=== PATIENT | male | born 1960 | race Caucasian/White ===

== ENCOUNTER → 2019-04-28 | Day surgery (SDC) | payer OTHER ==
[2019-03-31 11:35] VITALS: BMI 30.4
[~2019-04-28] MED LIST: LACTATED RINGERS 1,000 ML IV SCH; LIDOCAINE 1% 20 ML VIAL (10MG/ML) FOR IV START INTRADERMA PRN; PROPOFOL 10 MG/ML 20 ML VIAL IV ONE
[2019-04-28 07:42] VITALS: TEMP 98.3
--- NOTE | 2019-04-28 08:34 | P.PCN ---
Date of Procedure: 04/28/19 Procedure(s) Performed: BRIEF HISTORY: Patient is a 58-year-old pleasant white male, scheduled for an elective colonoscopy as a part of screening for colorectal neoplasia. PROCEDURE PERFORMED: Colonoscopy. PREOPERATIVE DIAGNOSIS: Screening for colon cancer. IV sedation per Anesthesia. PROCEDURE: After informed consent was obtained, the patient, was brought into the endoscopy unit. IV sedation was administered by Anesthesia under continuous monitoring. Digital rectal examination was normal. Initially the Olympus CF-160 flexible video colonoscope was then inserted in the rectum, gradually advanced into the cecum without any difficulty. Careful examination was performed as the scope was gradually being withdrawn. Ileocecal valve and the appendiceal orifice were visualized and appeared normal. Prep was excellent. Mucosa of the cecum, ascending colon, transverse colon, descending colon, sigmoid colon, and rectum appeared normal. Retroflexion was performed in the rectum and no lesions were seen. The patient tolerated the procedure well. IMPRESSION: Normal-appearing colon from rectum to cecum no evidence of colitis or colorectal neoplasia . RECOMMENDATIONS: Findings of this examination were discussed with the patient as well as his family. He was advised to have a repeat screening colonoscopy in 10 years.
[2019-04-28 09:16] VITALS: BP 152/77; PULSE 70; RESP 16
== END ==
LOC: ORWHC2ENDO 07:20
PROVIDERS: ATTEND Internal Medicine Gastroenterology
DX: Z12.11 Encounter for screening for malignant neoplasm of colon (principal); E78.5 Hyperlipidemia, unspecified; E07.9 Disorder of thyroid, unspecified; K21.9 Gastro-esophageal reflux disease without esophagitis; Z79.890 Hormone replacement therapy; Z79.899 Other long term (current) drug therapy
CPT/HCPCS: G0121; J2704

== ENCOUNTER → 2019-10-12 | Outpatient (CLI) | payer OTHER ==
--- NOTE | 2019-10-12 15:33 | US ---
EXAMINATION TYPE: US carotid duplex BILAT DATE OF EXAM: 10/12/2019 COMPARISON: NONE CLINICAL HISTORY: H53.121 Transient visual loss, right eye. Visual changes right eye EXAM MEASUREMENTS: RIGHT: Peak Systolic Velocity (PSV) cm/sec ----- Right CCA: 86.4 ----- Right ICA: 270.3 ----- Right ECA: 105.6 ICA/CCA ratio: 3.1 RIGHT: End Diastole cm/sec ----- Right CCA: 18.2 ----- Right ICA: 102.2 ----- Right ECA: 16.3 LEFT: Peak Systolic Velocity (PSV) cm/sec ----- Left CCA: 123.7 ----- Left ICA: 174.6 ----- Left ECA: 182.5 ICA/CCA ratio: 1.4 LEFT: End Diastole cm/sec ----- Left CCA: 35.7 ----- Left ICA: 56.3 ----- Left ECA: 26.8 VERTEBRALS (direction of flow): Right Vertebral: Antegrade Left Vertebral: Antegrade Rhythm: Normal Moderate plaque bilateral bifurcations. Increased velocities right ICA, left ICA, left ECA IMPRESSION: 1. Stenosis of approximately 70% within the right internal carotid artery. 2. Although there are elevated velocities of the left external carotid artery and internal carotid ar azam there is also an elevated velocity of the common carotid artery and therefore the internal carot id artery to common carotid artery ratio is within normal limits. Criteria is not met for hemodynamic ally significant stenosis and underlying hypertension is suspected. CTA neck could provide better estephanie gnostic evaluation. Criteria for Assigning % of Stenosis / Diameter reduction (Estimation based on the indirect measurements of the internal carotid artery velocities (ICA PSV). 1. Normal (no stenosis)=ICA PSV < 125 cm/s: ratio < 2.0: ICA EDV<40 cm/s. 2. Less than 50% stenosis=ICA PSV < 125 cm/s: ratio < 2.0: ICA EDV<40 cm/s. 3. 50 to 69% stenosis=ICA PSV of 125 to 230 cm/s: ration 2.0 ? 4.0: ICA EDV 40-100 cm/s. 4. Greater than 70% stenosis to near occlusion= ICA PSV > 230 cm/s: ratio > 4.0: ICA EDV > 100 cm/s. 5. Near occlusion= ICA PSV velocities may be low or undetectable: variable ratio and ICA EDV. 6. Total occlusion=unable to detect flow.
== END | disposition home or self-care (01) ==
LOC: RADUSWWP 14:51
DX: I65.21 Occlusion and stenosis of right carotid artery (principal); H53.121 Transient visual loss, right eye
CPT/HCPCS: 93880

== ENCOUNTER → 2019-11-24 | Outpatient (CLI) | payer OTHER ==
[2019-11-24 12:53] LABS: Basophils % (A) 1 %; Eosinophils # (A) 0.1 k/uL (0-0.7); Eosinophils % (A) 2 %; HCT 46.6 % (39.0-53.0); HGB 15.3 gm/dL (13.0-17.5); Lymphocytes # (A) 1.7 k/uL (1.0-4.8); Lymphocytes % (A) 26 %; MCH 28.9 pg (25.0-35.0); MCHC 32.7 g/dL (31.0-37.0); MCV 88.2 fL (80.0-100.0); Mean Platelet Volume 6.7; Monocytes # (A) 0.4 k/uL (0-1.0); Monocytes % (A) 5 %; Neutrophils # (A) 4.1 k/uL (1.3-7.7); Neutrophils % (A) 62 %; Platelet Count 298 k/uL (150-450); RBC 5.29 m/uL (4.30-5.90); RDW 12.9 % (11.5-15.5); WBC 6.6 k/uL (3.8-10.6)
[2019-11-24 12:57] LABS: African American GFR (CKD) >90 (>60 ml/min/1.73 sqM); Anion Gap 7 mmol/L; Blood Urea Nitrogen 18 mg/dL (9-20); Carbon Dioxide 29 mmol/L (22-30); Chloride 103 mmol/L (98-107); Non-African American GFR(CKD) >90 (>60 ml/min/1.73 sqM); Potassium 4.7 mmol/L (3.5-5.1); Sodium 139 mmol/L (137-145)
== END | disposition home or self-care (01) ==
LOC: LABPAT 11:30
PROVIDERS: ATTEND Surgery
DX: Z01.812 Encounter for preprocedural laboratory examination (principal); I65.21 Occlusion and stenosis of right carotid artery
CPT/HCPCS: 36415; 80051; 82565; 84520; 85025

== ENCOUNTER 2019-11-28 07:46 | Inpatient (IN) | payer OTHER ==
[2019-11-23 08:18] VITALS: BMI 31.1
[~2019-11-28 07:46] MED LIST changes: +DEXAMETHASONE SOD PHOSPHATE 10 MG/ML 1 ML VIAL IV ONE; +HYDROmorphone 0.5 MG/0.5 ML SYRINGE IVP PRN; -LACTATED RINGERS 1,000 ML IV SCH; +ONDANSETRON 4 MG/2 ML VIAL IVP ONE; -PROPOFOL 10 MG/ML 20 ML VIAL IV ONE; +SCOPOLAMINE 1.5MG/72HR PATCH TRANSDERM ONE
[2019-11-28] MEDS: LACTATED RINGERS 1,000 ML IV SCH (08:01)
[2019-11-28] MEDS ORDERED: MIDAZOLAM 2 MG/2 ML VIAL IVP ONE (09:05)
[2019-11-28] MEDS ORDERED: MIDAZOLAM 2 MG/2 ML VIAL ONE (09:50)
[2019-11-28] MEDS ORDERED: NEOSTIGMINE 1 MG/ML 10 ML VIAL ONE (09:50)
[2019-11-28] MEDS ORDERED: ePHEDrine SULFATE/0.9% NACL/PF 50 MG/5 ML SYRINGE IV ONE (09:50)
[2019-11-28] MEDS ORDERED: PROPOFOL 10 MG/ML 20 ML VIAL IV ONE (09:50)
[2019-11-28] MEDS ORDERED: fentaNYL (PF) 50 MCG/ML 2 ML AMP ONE (09:50)
[2019-11-28] MEDS ORDERED: PHENYLEPHRINE-0.9% NACL SYG 1 MG/10 ML SYRINGE ONE (09:50)
[2019-11-28] MEDS ORDERED: LIDOCAINE 1% INJ 10MG/ML (20 ML MDV) ONE (09:50)
[2019-11-28] MEDS ORDERED: SUCCINYLCHOLINE CHLORIDE 100 MG/5 ML SYR IV ONE (09:50)
[2019-11-28] MEDS ORDERED: ROCURONIUM BROMIDE 10 MG/ML 5 ML VIAL IV ONE (09:50)
[2019-11-28] MEDS ORDERED: HEPARIN SODIUM,PORCINE 10,000 UNIT/ML 1 ML VIAL ONE (09:50)
[2019-11-28] MEDS ORDERED: GLYCOPYRROLATE 0.2 MG/ML 2 ML VIAL ONE (09:50)
[2019-11-28] MEDS ORDERED: LIDOCAINE 1% INJ 10MG/ML (20 ML MDV) IM ONE (10:47)
[2019-11-28] MEDS ORDERED: THROMBIN (BOVINE) 5,000 UNIT VIAL TOPICAL ONE (10:48)
[2019-11-28] MEDS ORDERED: GELATIN SPONGE,ABSORB (LARGE) 1 EACH SPONGE TOPICAL ONE (10:48)
[2019-11-28] MEDS ORDERED: BACITRACIN 50,000 UNIT, POLYMYXIN B 500,000 UNIT in SODIUM CHLORIDE 0.9% IRRIGATIO 1,00... IRRIGATION ONE (11:18)
[2019-11-28] MEDS ORDERED: LACTATED RINGERS 1,000 ML IV ONE (11:20)
[2019-11-28] MEDS ORDERED: TRIMETHOBENZAMIDE 100 MG/ML 2 ML VIAL IM PRN (11:46)
[2019-11-28] MEDS ORDERED: MAG HYDROX/AL HYDROX/SIMETH 30 ML CUP PO PRN (11:46)
[2019-11-28] MEDS ORDERED: LORATADINE 10 MG TAB PO PRN (11:50)
--- NOTE | 2019-11-28 12:12 | P.OP ---
Description of Procedure: Date of Procedure: 11/28/2019 Preoperative Diagnosis: Symptomatic Right Internal carotid artery stenosis >90% Postoperative Diagnosis: Same Procedure(s) Performed: Right carotid endarterectomy with patch angioplasty Anesthesia: MARIANNA Surgeon: Rodolfo Mariee Asst: Felicity Castillo Estimated Blood Loss (ml): 40 IV Fluids: 1100 mL Urine Output: 200 Pathology: Right carotid plaque Condition: stable Disposition: PACU Indications for Procedure: 59-year-old gentleman with history of amaurosis fugax on the right percent to the office for discussion of carotid endarterectomy after a carotid Doppler and CT angiogram of the neck demonstrated greater than 90% stenosis of the right internal carotid artery just after the bifurcation. He presents to the hospital today for right carotid endarterectomy. Description of Procedure: After written informed consent was obtained the patient all risks benefits and competitions were described the patient is brought to the operative suite and laid in a supine position. The area of the neck was prepped and draped in usual sterile fashion after appropriate anesthetic was performed per the anest hesiologist. A timeout was performed in normal fashion antibiotics were administered prior to incision. An oblique incision was then created just anterior to the sternocleidomastoid musculature with a 10 blade scalpel and dissection was carried down to the carotid sheath. The carotid sheath was then entered after facial vein was located and suture ligated in normal fashion. The common carotid, internal carotid, external carotid and superior thyroid arteries were located and dissected free in a meticulous fashion circumferentially and controlled with vessel loops. The internal carotid artery did have a sharp turn just distal to the bifurcation. Attention was then placed to locating the vagus nerve as well as hypoglossal nerve which were both spared. Once controlled patient was admini stered heparin and followed with ACTs for appropriate heparinization. Once ACT was above 200 the proximal and distal aspects of the dissection were then controlled with vascular clamps. Arteriotomy was then created with 11 blade scalpel and extended with Moreno Lopez scissors. Utilizing pressure tubing stump pressures were obtained and were 71 mmHg. No shunt was required and endarterectomy was then performed with a [place] and elevator. The plaque was then feathered at the distal aspect and the internal carotid artery and removed. The area was copiously irrigated with heparinized saline and all free debris was removed. A 7-0 Prolene suture was then placed to tack the distal aspect of the dissection at the internal carotid artery. A 0.8 x 8 cm bovine pericardial patch was then chosen and patch angioplasty was performed with 6-0 Prolene suture in a running fashion. Prior to last sutures being placed the inflow was released flushing any free debris out of the patch. This was reclamped and the internal carotid artery was released revealing good brisk flow and was once again reclamped. The external carotid and superior thyroid artery were then released followed by the common carotid artery to allow any free debris to be flushed into the external system. Final sutures were placed and secured. Internal carotid artery control was then released. Good pulsatile flow was noted through the patch and a Doppler was utilized demonstrating good brisk flow into the internal, external carotid arteries without any signs of obstruction. Hemostasis was then assured with [place]elf[place] and thrombin. A 10-Vietnamese DAVID drain was then placed in normal fashion and secured with 3-0 nylon suture. The incision was then closed in a multilayer fashion after hemostasis was assured. The skin was then cleansed and dressings were placed. Patient tolerated the procedure well and was following commands and moving all extremities. Patient was then sent to PACU for recovery.
[2019-11-28] MEDS: SODIUM CHLORIDE 0.9% 1,000 ML IV SCH (14:08)
--- NOTE | 2019-11-28 14:47 | P.CNPUL ---
History of Present Illness Consult date: 11/28/19 Requesting physician: Rodolfo Mariee Reason for consult: other (ICU management) Chief complaint: Status post right carotid endarterectomy History of present illness: This is a 59-year-old white male with history of right carotid artery disease, greater than 90%. and symptoms of AMAUROSIS FUGAX. Patient is also known to have history of dyslipidemia, family history of coronary artery disease, and lifetime nonsmoker. Patient underwent elective right carotid endarterectomy today. Postoperatively, patient was admitted to the ICU, and I was asked to see him on consultation. Patient had recent cardiac workup including stress test, and he was cleared by cardiology for his surgery which was done electively today. Presently the patient is asymptomatic, denies any shortness of breath, denies any cough, no wheezing. Patient never smoked Review of Systems Constitutional: Negative, denies fever chills or weight loss. Denies any confusional symptoms HEENT: Negative except for what was noted in HPI. Pulmonary: No cough no wheezing no shortness of breath. Cardiac: Denies any chest pain or orthopnea PND. GI: Denies any nausea vomiting abdominal pain melena or hematemesis. Genitourinary: Denies any dysuria hematuria frequency urgency. Skin negative denies any rashes. Hematologic: No clotting bleeding or bruising Neurologic: As noted in HPI. Endocrine: Denies any heat or cold intolerance. Musculoskeletal: Denies any muscle weakness or limitation in range of motion. Psychiatric: Denies any symptoms of active depression. Past Medical History Past Medical History: GERD/Reflux, Hyperlipidemia, Hypertension, Thyroid Disorder Additional Past Medical History / Comment(s): "atypical migraines", "occ skipped heart beat", "borderline high cholesterol", rt carotid artery stenosis, "possible sleep apnea-I wake up snoring" History of Any Multi-Drug Resistant Organisms: None Reported Past Surgical History: No Surgical Hx Reported Additional Past Surgical History / Comment(s): colonoscopy Past Anesthesia/Blood Transfusion Reactions: Motion Sickness Additional Past Anesthesia/Blood Transfusion Reaction / Comment(s): has never had general anesthesia Smoking Status: Never smoker - Past Family History Mother Family Medical History: Pulmonary Embolus Additional Family Medical History / Comment(s): bleeding ulcer Medications and Allergies Home Medications Medication Instructions Recorded Confirmed Type Cetirizine HCl 10 mg PO DAILY PRN 03/31/19 11/23/19 History Levothyroxine Sodium [Synthroid] 200 mcg PO DAILY 03/31/19 11/23/19 History Aspirin [Adult Low Dose Aspirin EC] 81 mg PO DAILY 11/23/19 11/23/19 History Atorvastatin [Lipitor] 40 mg PO HS 11/23/19 11/23/19 History Metoprolol Tartrate [Lopressor] 12.5 mg PO QAM 11/23/19 11/23/19 History amLODIPine [Norvasc] 2.5 mg PO HS 11/23/19 11/23/19 History Allergies Allergy/AdvReac Type Severity Reaction Status Date / Time No Known Allergies Allergy Verified 11/28/19 08:10 Physical Exam Vitals: Vital Signs Temp Pulse Pulse Resp BP BP BP 11/28/19 14:10 58 L 14 106/63 11/28/19 14:00 58 L 13 11/28/19 13:50 60 17 114/70 11/28/19 13:40 59 L 12 11/28/19 13:30 61 17 11/28/19 13:20 61 8 L 11/28/19 13:15 68 10 L 11/28/19 13:00 62 16 145/73 117/62 11/28/19 12:45 66 16 130/68 102/54 11/28/19 12:30 72 16 125/66 103/54 11/28/19 12:15 97 F L 77 16 133/66 107/51 11/28/19 09:16 68 16 123/78 11/28/19 08:14 97.1 F L 70 16 147/72 Pulse Ox 11/28/19 14:10 94 L 11/28/19 14:00 94 L 11/28/19 13:50 95 11/28/19 13:40 94 L 11/28/19 13:30 93 L 11/28/19 13:20 11/28/19 13:15 11/28/19 13:00 16 L 11/28/19 12:45 94 L 11/28/19 12:30 94 L 11/28/19 12:15 95 11/28/19 09:16 97 11/28/19 08:14 97 Intake and Output 11/27/19 11/28/19 11/28/19 22:59 06:59 14:59 Intake Total 1631 Output Total 340 Balance 1291 Intake: IV 1631 Sodium Chloride 0.9% 1, 80 000 ml @ 80 mls/hr IV . [id number] [facility] Rx#:[id number] Output: Urine 300 Estimated Blood Loss 40 Other: Weight 112.1 kg ABP, PAP, CO, CI - Last 8 Hours Arterial Blood Pressure 107/53 Arterial Blood Pressure 102/53 Arterial Blood Pressure 100/53 Arterial Blood Pressure 91/50 Arterial Blood Pressure 102/51 Arterial Blood Pressure 110/53 Physical Exam: Revealed a 59-year-old white male in no distress. Head: Atraumatic, normocephalic. HEENT:[Neck is supple.] [No neck masses.] [No thyromegaly.] [No JVD.] Surgical dressing noted at the base of the right neck, with drain noted. Chest: [Clear throughout, no crackles, no rhonchi, no wheezes.] Cardiac Exam: [Normal S1 and S2, no S3 gallop, no murmur.] Abdomen: [Soft, nontender, no megaly, no rebound, no guarding, normal bowel sounds.] Extremities: [No clubbing, no edema, no cyanosis.] Neurologic: Alert and oriented 3, no gross focal neurologic deficits. Psychiatric: Normal mood, affect and normal mental status examination. Skin: No rashes. Musculoskeletal: No deformities noted limitation in range of motion. Results - Diagnostic Findings Additional studies: Neck CT angiogram should recently showed critical stenosis of the right internal carotid artery, no significant stenosis of the left internal carotid artery. Assessment and Plan Assessment: Impression: Status post right carotid endarterectomy postoperative day #0. History of dyslipidemia maintained on statin Family history of coronary artery disease Recommendation: Resume home meds including blood pressure medication Aspirin and Plavix as ordered by vascular surgery. DVT prophylaxis/Lovenox. Pain control Incentive spirometry Continue IV fluid at 75 mL per hour. Possible discharge planning in the next 24 hours. Time with Patient: Greater than 30
[2019-11-28] MEDS: ACETAMINOPHEN TAB 325 MG TAB PO PRN ×2 (15:26→19:35)
[2019-11-28] MEDS ORDERED: SODIUM CHLORIDE 0.9% 1,000 ML IV ONE (16:50)
[2019-11-28] MEDS ORDERED: amLODIPine 2.5 MG TAB PO SCH (21:00)
[2019-11-28] MEDS ORDERED: ATORVASTATIN 40 MG TAB PO SCH (21:00)
[2019-11-29] MEDS: ACETAMINOPHEN TAB 325 MG TAB PO PRN ×2 (00:17→03:28)
[2019-11-29] MEDS: BENZOCAINE/MENTHOL LOZENG 1 EACH LOZENGE MUCOUS MEM PRN ×2 (00:17→03:29)
[2019-11-29] MEDS: SODIUM CHLORIDE 0.9% 1,000 ML IV SCH ×2 (00:20→08:47)
[2019-11-29 04:46] LABS: Basophils % (A) 0 %; Eosinophils % (A) 0 %; HCT 37.1 % (39.0-53.0); HGB 12.5 gm/dL (13.0-17.5); Lymphocytes # (A) 1.6 k/uL (1.0-4.8); Lymphocytes % (A) 16 %; MCH 29.7 pg (25.0-35.0); MCHC 33.8 g/dL (31.0-37.0); Mean Platelet Volume 6.9; Monocytes # (A) 0.5 k/uL (0-1.0); Monocytes % (A) 6 %; Neutrophils # (A) 7.6 k/uL (1.3-7.7); Neutrophils % (A) 77 %; Platelet Count 209 k/uL (150-450); RBC 4.22 m/uL (4.30-5.90); WBC 9.9 k/uL (3.8-10.6)
[2019-11-29 04:54] LABS: ALT 32 U/L (4-49); AST 33 U/L (17-59); African American GFR (CKD) >90 (>60 ml/min/1.73 sqM); Alkaline Phosphatase 63 U/L (38-126); Anion Gap 4 mmol/L; Blood Urea Nitrogen 11 mg/dL (9-20); Calcium 8.4 mg/dL (8.4-10.2); Carbon Dioxide 25 mmol/L (22-30); Chloride 107 mmol/L (98-107); Glucose 109 mg/dL (74-99); Non-African American GFR(CKD) >90 (>60 ml/min/1.73 sqM); Potassium 4.2 mmol/L (3.5-5.1); Sodium 136 mmol/L (137-145); Total Bilirubin 1.5 mg/dL (0.2-1.3); Total Protein 5.6 g/dL (6.3-8.2)
[2019-11-29] MEDS: LACTATED RINGERS 1,000 ML IV SCH (05:13)
[2019-11-29] MEDS ORDERED: LEVOTHYROXINE 100 MCG TAB PO SCH (06:30)
--- NOTE | 2019-11-29 07:42 | P.CRDCN ---
History of Present Illness Consult date: 11/29/19 Chief complaint: Carotid disease and status post endarterectomy History of present illness: This is a pleasant 59-year-old gentleman who sees Dr. Ponce in the office on regular basis with a past medical history significant for hypertension and d yslipidemia and also significant family history of coronary artery disease was diagnosed recently was critical disease involving the right internal carotid artery. He underwent yesterday right carotid endarterectomy. This is his post operation day #1. Overall the patient is doing well from a cardiac vascular standpoint overview. He denies any symptoms of chest pain or chest discomfort, shortness of breath, dizziness, heart racing, or syncope. He is hemodynamically stable. Beside that he is on dual antiplatelet therapy along with aspirin and Plavix as well as a statin. From a cardiac O standpoint of view, the patient can be discharged to another floor for possible discharge home next 12-24 hours. Past Medical History Past Medical History: GERD/Reflux, Hyperlipidemia, Hypertension, Thyroid Disorder Additional Past Medical History / Comment(s): "atypical migraines", "occ skipped heart beat", "borderline high cholesterol", rt carotid artery stenosis, "possible sleep apnea-I wake up snoring" History of Any Multi-Drug Resistant Organisms: None Reported Past Surgical History: No Surgical Hx Reported Additional Past Surgical History / Comment(s): colonoscopy Past Anesthesia/Blood Transfusion Reactions: Motion Sickness Additional Past Anesthesia/Blood Transfusion Reaction / Comment(s): has never had general anesthesia Smoking Status: Never smoker - Past Family History Mother Family Medical History: Pulmonary Embolus Additional Family Medical History / Comment(s): bleeding ulcer Medications and Allergies Home Medications Medication Instructions Recorded Confirmed Type Cetirizine HCl 10 mg PO DAILY PRN 03/31/19 11/23/19 History Levothyroxine Sodium [Synthroid] 200 mcg PO DAILY 03/31/19 11/23/19 History Aspirin [Adult Low Dose Aspirin EC] 81 mg PO DAILY 11/23/19 11/23/19 History Atorvastatin [Lipitor] 40 mg PO HS 11/23/19 11/23/19 History Metoprolol Tartrate [Lopressor] 12.5 mg PO QAM 11/23/19 11/23/19 History amLODIPine [Norvasc] 2.5 mg PO HS 11/23/19 11/23/19 History Allergies Allergy/AdvReac Type Severity Reaction Status Date / Time No Known Allergies Allergy Verified 11/28/19 08:10 Physical Exam Vitals: Vital Signs Temp Pulse Pulse Resp BP BP BP 11/29/19 07:00 49 L 11 L 104/67 11/29/19 06:00 55 L 18 11/29/19 05:00 58 L 17 107/62 11/29/19 04:00 98.7 F 57 L 17 110/61 11/29/19 03:00 54 L 15 104/59 11/29/19 02:00 54 L 17 112/63 11/29/19 01:00 53 L 18 122/76 11/29/19 00:00 98.6 F 56 L 15 113/62 11/28/19 23:06 56 L 11 L 113/62 11/28/19 23:00 57 L 18 105/59 11/28/19 22:00 53 L 17 108/64 11/28/19 21:00 52 L 12 114/68 11/28/19 20:00 55 L 19 105/64 11/28/19 19:00 61 18 105/64 11/28/19 18:00 55 L 16 102/59 11/28/19 17:00 54 L 18 102/59 11/28/19 16:00 97.4 F L 55 L 22 106/63 11/28/19 15:00 61 12 106/63 11/28/19 14:30 59 L 19 11/28/19 14:10 58 L 14 106/63 11/28/19 14:00 58 L 13 11/28/19 13:50 60 17 114/70 11/28/19 13:40 59 L 12 11/28/19 13:30 61 17 11/28/19 13:20 61 8 L 11/28/19 13:15 68 10 L 11/28/19 13:00 62 16 145/73 117/62 11/28/19 12:45 66 16 130/68 102/54 11/28/19 12:30 72 16 125/66 103/54 11/28/19 12:15 97 F L 77 16 133/66 107/51 11/28/19 09:16 68 16 123/78 11/28/19 08:14 97.1 F L 70 16 147/72 Pulse Ox 11/29/19 07:00 98 11/29/19 06:00 11/29/19 05:00 11/29/19 04:00 94 L 11/29/19 03:00 11/29/19 02:00 11/29/19 01:00 11/29/19 00:00 11/28/19 23:06 11/28/19 23:00 95 11/28/19 22:00 99 11/28/19 21:00 96 11/28/19 20:00 97 11/28/19 19:00 98 11/28/19 18:00 97 11/28/19 17:00 97 11/28/19 16:00 97 11/28/19 15:00 95 11/28/19 14:30 94 L 11/28/19 14:10 94 L 11/28/19 14:00 94 L 11/28/19 13:50 95 11/28/19 13:40 94 L 11/28/19 13:30 93 L 11/28/19 13:20 11/28/19 13:15 11/28/19 13:00 16 L 11/28/19 12:45 94 L 11/28/19 12:30 94 L 11/28/19 12:15 95 11/28/19 09:16 97 11/28/19 08:14 97 Intake and Output 11/28/19 11/29/19 11/29/19 22:59 06:59 14:59 Intake Total 880 420 Output Total 1275 2100 0 Balance -395 -1680 0 Intake: IV 880 420 Sodium Chloride 0.9% 1, 880 420 000 ml @ 120 mls/hr IV . Q8H20M [facility] Rx#:[id number] Output: Urine 1275 2100 0 Other: Voiding Method Indwelling Catheter Indwelling Catheter # Voids 1 Weight 117.8 kg ABP, PAP, CO, CI - Last 8 Hours Arterial Blood Pressure 100/51 Arterial Blood Pressure 90/48 Arterial Blood Pressure 92/47 Arterial Blood Pressure 106/53 - Constitutional General appearance: no acute distress - Respiratory Respiratory: bilateral: CTA - Cardiovascular Rhythm: regular Heart sounds: normal: S1, S2 Results 11/29/19 04:25 11/29/19 04:25 Cardiac Enzymes 11/29/19 Range/Units 04:25 AST 33 (17-59) U/L CBC 11/29/19 Range/Units 04:25 WBC 9.9 (3.8-10.6) k/uL RBC 4.22 L (4.30-5.90) m/uL Hgb 12.5 L (13.0-17.5) gm/dL Hct 37.1 L (39.0-53.0) % Plt Count 209 (150-450) k/uL Comprehensive Metabolic Panel 11/29/19 Range/Units 04:25 Sodium 136 L (137-145) mmol/L Potassium 4.2 (3.5-5.1) mmol/L Chloride 107 (98-107) mmol/L Carbon Dioxide 25 (22-30) mmol/L BUN 11 (9-20) mg/dL Creatinine 0.69 (0.66-1.25) mg/dL Glucose 109 H (74-99) mg/dL Calcium 8.4 (8.4-10.2) mg/dL AST 33 (17-59) U/L ALT 32 (4-49) U/L Alkaline Phosphatase 63 (38-126) U/L Total Protein 5.6 L (6.3-8.2) g/dL Albumin 3.0 L (3.5-5.0) g/dL Current Medications Generic Name Dose Route Start Last Admin Trade Name Freq PRN Reason Stop Dose Admin Acetaminophen 650 mg 11/28/19 11:46 11/29/19 03:28 Tylenol Tab PO 650 mg Q4HR PRN Administration Pain Al Hydroxide/Mg Hydroxide 30 ml 11/28/19 11:46 Maalox PO Q6HR PRN Indigestion Aspirin 162 mg 11/29/19 09:00 Aspirin PO DAILY [facility] Atorvastatin Calcium 40 mg 11/28/19 21:00 11/28/19 19:37 Lipitor PO 40 mg HS [facility] Administration Benzocaine/Menthol 1 each 11/28/19 11:46 11/29/19 03:29 Cepacol Lozenge MUCOUS MEM 1 each Q2HR PRN Administration Sore Throat Clopidogrel Bisulfate 75 mg 11/29/19 09:00 Plavix PO DAILY [facility] Enoxaparin Sodium 40 mg 11/29/19 09:00 Lovenox SQ DAILY [facility] Lactated Ringer's 1,000 mls @ 20 mls/hr 11/28/19 05:26 11/29/19 05:13 Lactated Ringers IV Not Given .Q24H [facility] Sodium Chloride 1,000 mls @ 120 mls/hr 11/28/19 12:00 11/29/19 00:20 Saline 0.9% IV 120 mls/hr .Q8H20M [facility] Administration Levothyroxine Sodium 200 mcg 11/29/19 06:30 11/29/19 05:59 Synthroid PO 200 mcg DAILY@0630 [facility] Administration Lidocaine HCl 0.1 ml 11/28/19 05:26 .Xylocaine 1% Inj (10mg/Ml) For Iv Start INTRADERMA PER PROTOCOL PRN IV Start Loratadine 10 mg 11/28/19 11:50 Claritin PO DAILY PRN allergies Metoprolol Tartrate 12.5 mg 11/29/19 09:00 Lopressor PO QAM [facility] Trimethobenzamide HCl 200 mg 11/28/19 11:46 Tigan IM Q4HR PRN Nausea And Vomiting Intake and Output 11/28/19 11/29/19 11/29/19 22:59 06:59 14:59 Intake Total 880 420 Output Total 1275 2100 0 Balance -395 -1680 0 Intake: IV 880 420 Sodium Chloride 0.9% 1, 880 420 000 ml @ 120 mls/hr IV . Q8H20M [facility] Rx#:[id number] Output: Urine 1275 2100 0 Other: Voiding Method Indwelling Catheter Indwelling Catheter # Voids 1 Weight 117.8 kg 11/29/19 04:25 11/29/19 04:25 Assessment and Plan Assessment: Assessment #1 critical disease involving the right internal carotid artery and status post right endarterectomy Plan #1 the patient is asymptomatic from a cardiac standpoint #2 he remains hemodynamically stable #3 the patient can be transferred out of the ICU
[2019-11-29 08:51] VITALS: TEMP 97.5
[2019-11-29] MEDS ORDERED: ENOXAPARIN 40 MG/0.4 ML SYRINGE SQ SCH (09:00)
[2019-11-29] MEDS ORDERED: ASPIRIN 81 MG PO SCH (09:00)
[2019-11-29] MEDS ORDERED: CLOPIDOGREL 75 MG TAB PO SCH (09:00)
[2019-11-29] MEDS ORDERED: NON FORMULARY DRUG (Aspirin [Adult Low Dose Aspirin Ec] 81 MG) PO SCH (09:00)
[2019-11-29] MEDS ORDERED: METOPROLOL TARTRATE 12.5 MG TAB PO SCH (09:00)
--- NOTE | 2019-11-29 09:36 | P.CONS ---
History of Present Illness - Chief Complaint Medical management - History of Present Illness This is a very pleasant 59-year-old male with history of hypertension, dyslipidemia and hypothyroidism who was recently diagnosed with right carted artery disease. About a month ago patient had transitory loss of vision in his right eye. At time he was evaluated by his cargo station worker and went for carted ultrasound which showed 90% stenosis in the right carted artery. He was admitted yesterday for elective atherectomy. His postoperative day one is doing very well. He does not have any numbness or weakness in his extremities. He does not have any chest pain or shortness of breath. Blood work is stable with hemoglobin of 12.5, normal white blood cell count and platelets. Review of Systems Review of systems negative except mentioned in HPI Past Medical History Past Medical History: GERD/Reflux, Hyperlipidemia, Hypertension, Thyroid Disorder Additional Past Medical History / Comment(s): "atypical migraines", "occ skipped heart beat", "borderline high cholesterol", rt carotid artery stenosis, "possible sleep apnea-I wake up snoring" History of Any Multi-Drug Resistant Organisms: None Reported Past Surgical History: No Surgical Hx Reported Additional Past Surgical History / Comment(s): colonoscopy Past Anesthesia/Blood Transfusion Reactions: Motion Sickness Additional Past Anesthesia/Blood Transfusion Reaction / Comm: has never had general anesthesia Smoking Status: Never smoker - Past Family History Mother Family Medical History: Pulmonary Embolus Additional Family Medical History / Comment(s): bleeding ulcer Medications and Allergies Home Medications Medication Instructions Recorded Confirmed Type Cetirizine HCl 10 mg PO DAILY PRN 03/31/19 11/23/19 History Levothyroxine Sodium [Synthroid] 200 mcg PO DAILY 03/31/19 11/23/19 History Aspirin [Adult Low Dose Aspirin EC] 81 mg PO DAILY 11/23/19 11/23/19 History Atorvastatin [Lipitor] 40 mg PO HS 11/23/19 11/23/19 History Metoprolol Tartrate [Lopressor] 12.5 mg PO QAM 11/23/19 11/23/19 History amLODIPine [Norvasc] 2.5 mg PO HS 11/23/19 11/23/19 History Clopidogrel [Plavix] 75 mg PO DAILY #30 tab 11/29/19 Rx Allergies Allergy/AdvReac Type Severity Reaction Status Date / Time No Known Allergies Allergy Verified 11/28/19 08:10 Physical Exam Vitals: Vital Signs Temp Pulse Pulse Resp BP BP BP 11/29/19 08:00 97.5 F L 57 L 12 104/67 11/29/19 07:00 49 L 11 L 104/67 11/29/19 06:00 55 L 18 11/29/19 05:00 58 L 17 107/62 11/29/19 04:00 98.7 F 57 L 17 110/61 11/29/19 03:00 54 L 15 104/59 11/29/19 02:00 54 L 17 112/63 11/29/19 01:00 53 L 18 122/76 11/29/19 00:00 98.6 F 56 L 15 113/62 11/28/19 23:06 56 L 11 L 113/62 11/28/19 23:00 57 L 18 105/59 11/28/19 22:00 53 L 17 108/64 11/28/19 21:00 52 L 12 114/68 11/28/19 20:00 55 L 19 105/64 11/28/19 19:00 61 18 105/64 11/28/19 18:00 55 L 16 102/59 11/28/19 17:00 54 L 18 102/59 11/28/19 16:00 97.4 F L 55 L 22 106/63 11/28/19 15:00 61 12 106/63 11/28/19 14:30 59 L 19 11/28/19 14:10 58 L 14 106/63 11/28/19 14:00 58 L 13 11/28/19 13:50 60 17 114/70 11/28/19 13:40 59 L 12 11/28/19 13:30 61 17 11/28/19 13:20 61 8 L 11/28/19 13:15 68 10 L 11/28/19 13:00 62 16 145/73 117/62 11/28/19 12:45 66 16 130/68 102/54 11/28/19 12:30 72 16 125/66 103/54 11/28/19 12:15 97 F L 77 16 133/66 107/51 Pulse Ox 11/29/19 08:00 94 L 11/29/19 07:00 98 11/29/19 06:00 11/29/19 05:00 11/29/19 04:00 94 L 11/29/19 03:00 11/29/19 02:00 11/29/19 01:00 11/29/19 00:00 11/28/19 23:06 11/28/19 23:00 95 11/28/19 22:00 99 11/28/19 21:00 96 11/28/19 20:00 97 11/28/19 19:00 98 11/28/19 18:00 97 11/28/19 17:00 97 11/28/19 16:00 97 11/28/19 15:00 95 11/28/19 14:30 94 L 11/28/19 14:10 94 L 11/28/19 14:00 94 L 11/28/19 13:50 95 11/28/19 13:40 94 L 11/28/19 13:30 93 L 11/28/19 13:20 11/28/19 13:15 11/28/19 13:00 16 L 11/28/19 12:45 94 L 11/28/19 12:30 94 L 11/28/19 12:15 95 Intake and Output 11/28/19 11/29/19 11/29/19 22:59 06:59 14:59 Intake Total 880 420 Output Total 1275 2100 0 Balance -395 -1680 0 Intake: IV 880 420 Sodium Chloride 0.9% 1, 880 420 000 ml @ 120 mls/hr IV . Q8H20M [facility] Rx#:[id number] Output: Urine 1275 2100 0 Other: Voiding Method Indwelling Catheter Indwelling Catheter Urinal # Voids 1 Weight 117.8 kg ABP, PAP, CO, CI - Last 8 Hours Arterial Blood Pressure 100/51 Arterial Blood Pressure 90/48 Arterial Blood Pressure 92/47 Vital Signs: I have reviewed the vital signs. GENERAL: Well-nourished, Well-developed , no apparent distress, cooperative Eyes: PERRL, extraoculry movements intact, clear conjunctiva Head: : Atraumatic external nose and ears, oropharyngeal mucosa is moist without lesions or exudates Neck: Symmetric, trachea midline, No thyromegaly, no masses or neck vain pulsation, no neck rigidity CVS: +S1/S2, No murmurs or gallops. Peripheral pulses 2+ and equal in all extremities. RESP: Unlabored respiratory effort. Clear to auscultation bilaterally. Abdomen: Bowel sounds present in all 4 quadrants, Soft to palpation, Nontender/Nondistended, No hepatosplenomegaly, no hernias or masses, no CVA tnderness Musculoskeletal: Extremities w/o deformity, No cyanosis or clubbing, no joint swelling Skin: Warm, Dry. No rashes or lesions Neuro: wire charger II-XII grossly intact, motor strenght 5/5 i upper and lower extremities, no clonus, patellar DTRs 2+ and sympetrical Psych: Awake, Alert, & Oriented (AAO) x3 Appropriate mood and affect Results CBC & Chem 7: 11/29/19 04:25 11/29/19 04:25 Labs: Abnormal Lab Results - Last 24 Hours (Table) 11/29/19 11/29/19 Range/Units 04:25 04:25 RBC 4.22 L (4.30-5.90) m/uL Hgb 12.5 L (13.0-17.5) gm/dL Hct 37.1 L (39.0-53.0) % Sodium 136 L (137-145) mmol/L Glucose 109 H (74-99) mg/dL Total Bilirubin 1.5 H (0.2-1.3) mg/dL Total Protein 5.6 L (6.3-8.2) g/dL Albumin 3.0 L (3.5-5.0) g/dL Assessment and Plan Assessment: 1. Right Carted artery disease, symptomatic Status post CEA Postoperative day one Continue antiplatelets and statin Care per vascular surgery 2. Hypothyroidism Continue Synthroid 2. Hypertension continue his current home medications His blood pressures on the soft side but I would not anticipate that it will be normal significant changes in his blood pressure medications at time of discharge
--- NOTE | 2019-11-29 11:09 | P.PN ---
Subjective Progress Note Date: 11/29/19 Principal diagnosis: Status post right carotid endarterectomy postoperative day #1 This is a 59-year-old white male with history of right carotid artery disease, greater than 90%. and symptoms of AMAUROSIS FUGAX. Patient is also known to have history of dyslipidemia, family history of coronary artery disease, and lifetime nonsmoker. Patient underwent elective right carotid endarterectomy today. Postoperatively, patient was admitted to the ICU, and I was asked to see him on consultation. Patient had recent cardiac workup including stress test, and he was cleared by cardiology for his surgery which was done electively today. Presently the patient is asymptomatic, denies any shortness of breath, denies any cough, no wheezing. Patient never smoked Patient was reevaluated today on 11/29/2019, patient is doing well, he is postoperative day #1. Patient is asymptomatic, hemodynamically stable, denies any shortness of breath no cough no wheezing no headache no blurred vision no dizziness. Labs were reviewed including basic metabolic profile and CBC seem to be very unremarkable Objective - Vital Signs Vital signs: Vital Signs Temp 97.5 F L 11/29/19 08:00 Pulse 53 L 11/29/19 10:00 Resp 18 11/29/19 10:00 BP 110/76 11/29/19 10:00 Pulse Ox 96 11/29/19 10:00 Intake & Output 11/28/19 11/29/19 11/29/19 18:59 06:59 18:59 Intake Total 2151 780 Output Total 765 2950 20 Balance 1386 -2170 -20 Weight 112.1 kg 117.8 kg Intake: IV 2151 780 Sodium Chloride 0.9% 1, 600 780 000 ml @ 120 mls/hr IV . Q8H20M [facility] Rx#:[id number] Output: Drainage 20 Right Neck 20 Urine 725 2950 0 Estimated Blood Loss 40 Other: Voiding Method Indwelling Catheter Indwelling Catheter Urinal # Voids 1 ABP, PAP, CO, CI - Last Documented Arterial Blood Pressure 100/51 - Exam Physical Exam: Revealed a 59-year-old white male in no distress. Head: Atraumatic, normocephalic. HEENT:[Neck is supple.] [No neck masses.] [No thyromegaly.] [No JVD.] Surgical dressing noted, drain has been removed from the surgical site Chest: [Clear throughout, no crackles, no rhonchi, no wheezes.] Cardiac Exam: [Normal S1 and S2, no S3 gallop, no murmur.] Abdomen: [Soft, nontender, no megaly, no rebound, no guarding, normal bowel sounds.] Extremities: [No clubbing, no edema, no cyanosis.] Neurologic: Alert and oriented 3, no gross focal neurologic deficits. Psychiatric: Normal mood, affect and normal mental status examination. Skin: No rashes. Musculoskeletal: No deformities noted limitation in range of motion. - Labs CBC & Chem 7: 11/29/19 04:25 11/29/19 04:25 Labs: Abnormal Lab Results - Last 24 Hours (Table) 11/29/19 11/29/19 Range/Units 04:25 04:25 RBC 4.22 L (4.30-5.90) m/uL Hgb 12.5 L (13.0-17.5) gm/dL Hct 37.1 L (39.0-53.0) % Sodium 136 L (137-145) mmol/L Glucose 109 H (74-99) mg/dL Total Bilirubin 1.5 H (0.2-1.3) mg/dL Total Protein 5.6 L (6.3-8.2) g/dL Albumin 3.0 L (3.5-5.0) g/dL Assessment and Plan Assessment: Impression: Status post right carotid endarterectomy postoperative day #1 History of dyslipidemia maintained on statin Family history of coronary artery disease Recommendation: Resume home meds Continue incentive spirometer. Agree with discharge planning today, cleared from my perspective for discharge today. Time with Patient: Less than 30
--- NOTE | 2019-11-29 13:09 | P.DS ---
Providers Date of admission: 11/28/19 07:46 Expected date of discharge: 11/29/19 Attending physician: Rodolfo Mariee DO Consults: 11/28/19 11:46 Consult Physician Routine Consulting Provider: Dixie Moreno Consult Reason/Comments: medical management Do you want consulting provider notified?: Yes 11/28/19 11:51 Consult Physician Routine Consulting Provider: Patria Barros Consult Reason/Comments: icu care Do you want consulting provider notified?: Yes 11/28/19 11:52 Consult Physician Routine Consulting Provider: Peace Ponce Consult Reason/Comments: cad, patient known to you Do you want consulting provider notified?: Yes Primary care physician: [facility] Course: The patient is a pleasant 59-year-old male with a history of symptomatic right internal carotid artery stenosis greater than 90% who was following with Dr. Mariee in the outpatient setting. A carotid Doppler and CT angiogram of the neck demonstrated greater than 90% stenosis of the right internal carotid artery just after the bifurcation, therefore the patient came in for a planned carotid endarterectomy. He is postop day 1 today for a right carotid endarterectomy with patch angioplasty. He had some asymptomatic hypotension through the night, and his blood pressure medications were held. Patient denies any acute changes through the night, vital signs are stable. Dressing is clean dry and intact with DAVID drain with approximately 20 mL of serosanguineous drainage. Cardiology Dr. Ponce on consult to address hypotension and his recent start of new blood pressure medications. Assessment: Exam: General appearance: The patient is alert, oriented, in no acute distress. HET: Head is normocephalic and atraumatic. Neck: Supple without lymphadenopathy. Trachea midline. Residual neck with dressing clean dry and intact and DAVID drain with approximately 20 mL of serosanguineous drainage. Dressing removed incision is well approximated, with no drainage. No signs of hematoma and incision site. Heart: S1 S2. Regular rate and rhythm. Lungs: No crackles or wheezes are heard. Abdomen: Soft, nontender, nondistended with bowel sounds. Extremities: Normal skin color and turgor. Radial and pedal pulses are 2/4 bilaterally. Neurological: No focal deficits. Strength and sensation are grossly intact. Assessment: Symptomatic right internal carotid artery stenosis greater than 90% Plan: Patient is status post right carotid endarterectomy with patch angioplasty. Vital signs have remained stable. Continue to hold Lopressor. Dressing was removed as well as DAVID drain. A-line and bolanos catheter have been discontinued. Patient's been up ambulating and tolerating diet. Cardiology to see patient, adjust blood pressure medi cations. Patient may be discharged after lunch if okay with cardiology. The above dictated assessment and findings were discussed with Dr. Bolanos. The impression and plan of care have been directed as dictated. Procedures: Right carotid endarterectomy with patch angioplasty Patient Condition at Discharge: Good Plan - Discharge Summary New Discharge Prescriptions: New Clopidogrel [Plavix] 75 mg PO DAILY #30 tab Aspirin 162 mg PO DAILY chew Acetaminophen Tab [Tylenol] 650 mg PO Q4HR PRN tab PRN Reason: Pain Continue Cetirizine HCl 10 mg PO DAILY PRN PRN Reason: allergies Levothyroxine Sodium [Synthroid] 200 mcg PO DAILY Atorvastatin [Lipitor] 40 mg PO HS Aspirin [Adult Low Dose Aspirin EC] 81 mg PO DAILY Discontinued amLODIPine [Norvasc] 2.5 mg PO HS Metoprolol Tartrate [Lopressor] 12.5 mg PO QAM Discharge Medication List Cetirizine HCl 10 mg PO DAILY PRN 03/31/19 [History] Levothyroxine Sodium [Synthroid] 200 mcg PO DAILY 03/31/19 [History] Aspirin [Adult Low Dose Aspirin EC] 81 mg PO DAILY 11/23/19 [History] Atorvastatin [Lipitor] 40 mg PO HS 11/23/19 [History] Acetaminophen Tab [Tylenol] 650 mg PO Q4HR PRN tab 11/29/19 [Rx] Aspirin 162 mg PO DAILY chew 11/29/19 [Rx] Clopidogrel [Plavix] 75 mg PO DAILY #30 tab 11/29/19 [Rx] Follow up Appointment(s)/Referral(s): Rodolfo Mariee DO [STAFF PHYSICIAN] - 2 Weeks (Follow-up appointment with Dr. Mariee in 10-14 days) Activity/Diet/Wound Care/Special Instructions: May shower tomorrow. No tub bathing. No driving for 3 days. No heavy lifting or shoveling. Discharge Disposition: HOME SELF-CARE
[2019-11-29 14:25] VITALS: BP 99/58; PULSE 52; RESP 17
== END 2019-11-29 14:27 | disposition home or self-care (01) | DRG 39 ==
LOC: 2ORMAIN 07:46 → 2SICU 12:18
PROVIDERS: ADMIT Surgery; ATTEND Surgery
PROC: 03CK0ZZ Extirpation of Matter from Right Internal Carotid Artery, Open Approach (ICD-10-PCS; principal; 2019-11-28 09:15)
PROC: 03UK0KZ Supplement Right Internal Carotid Artery with Nonautologous Tissue Substitute, Open Approach (ICD-10-PCS; principal; 2019-11-28 09:15)
DX: I65.21 Occlusion and stenosis of right carotid artery (principal); I95.9 Hypotension, unspecified; E03.9 Hypothyroidism, unspecified; H54.61 Unqualified visual loss, right eye, normal vision left eye; E78.2 Mixed hyperlipidemia; I10 Essential (primary) hypertension; G43.009 Migraine without aura, not intractable, without status migrainosus; K21.9 Gastro-esophageal reflux disease without esophagitis; Z79.82 Long term (current) use of aspirin; Z79.890 Hormone replacement therapy; Z79.02 Long term (current) use of antithrombotics/antiplatelets; Z79.899 Other long term (current) drug therapy; Z82.49 Family history of ischemic heart disease and other diseases of the circulatory system; Z83.2 Family history of diseases of the blood and blood-forming organs and certain disorders involving the immune mechanism
CPT/HCPCS: 80053; 85025; 86850; 86900; 86901; 88304; 88305; 88311

== ENCOUNTER → 2024-10-05 | Outpatient (CLI) | payer OTHER ==
[2024-10-05 16:22] VITALS: BP 142/89; PULSE 70; RESP 16; TEMP 98.2
--- NOTE | 2024-10-05 16:57 | P.SLEEP ---
History of Present Illness DATE: 10/05/2024 CONSULTATION/NEW PATIENT EVALUATION HISTORY OF PRESENT ILLNESS/SLEEP-WAKE EVALUATION: 63-year-old gentleman had been evaluated in the sleep center for possible obstructive sleep apnea hypopnea syndrome. SLEEP SCHEDULE: Usually sleep schedule from midnight until 9 AM on weekdays and from 1:30 AM until 9 AM on weekend. FALLING ASLEEP: No problems with falling asleep. DURING SLEEP: Patient has snoring, dry mouth and awakenings from sleep with episodes of choking and gasping for air. No history of hypnogogical hallucinations, sleep paralysis, or cataplexy. DURING THE DAY/WAKE STATE: In the morning patient wake up tired, has episodes of anxiety. [place] sleepiness scale is increased to 11. Patient may take 1 nap during the day. PAST MEDICAL HISTORY: Hypertension, anxiety, hypothyroidism. PAST SURGICAL HISTORY: Right carotid endarterectomy. MEDICATIONS: Have been reviewed please see below. SOCIAL HISTORY: Please see below. FAMILY HISTORY: Please see below. REVIEW OF SYSTEMS: Snoring, awakenings with choking, sleepiness. No fevers. No double vision. No recent chest pain. No shortness of breath. No abdominal pain. No bleeding episodes. No blood in urine. No seizure episodes. PHYSICAL EXAMINATION: GENERAL: A pleasant patient without any distress. VITAL SIGNS: Please see below, weight 259 pounds, BMI 33.2. HEENT: PERRLA, EOMI. Evaluation of oropharynx showed tongue protrudes midline, low position of soft palate Mallampati 3. NECK: Supple. No JVD. Thyroid is not palpable. 17 inches in circumference. LUNGS: Clear to percussion and to auscultation. Good air exchange. No wheezing or rhonchi. HEART: S1, S2 regular. No murmurs, gallops or rubs. ABDOMEN: Soft and nontender. Bowel sounds are present. No organomegaly appreciated. EXTREMITIES: No clubbing or cyanosis. TRIPLE AIR VALVE TESTER: Awake, alert, and oriented x3. Cranial nerves 2 to 7 intact. There is no fasciculation or atrophy noted. No focal deficits observed. ASSESSMENT: 1. Snoring, awakenings from sleep with choking, low position of soft palate Mallampati 3, wide neck 17 inches in circumference, sleepiness with [place] Sleepiness Scale 11. Obstructive sleep apnea hypopnea syndrome. 2. Obesity, BMI 33.2. 3. Hypertension. 4. Anxiety. 5 hypothyroidism. 6 . Status post right carotid endarterectomy. 7. Sinus problems. PLAN: 1. Polysomnography for evaluation of patient's breathing during sleep. 2. Following plan after reading sleep study. 3. Preferable position during sleep on the side. 4. No driving if patient feels any sleepiness. Patient is aware of civil and criminal liability for unsafe driving. 5. Sleep hygiene with regular sleep time for at least 7.5-8 hours. 6. Watching and losing weight. Thank you very much for referring this patient for consultation. Sincerely, Rod Tomlin MD, PhD, FAASM. Diplomat of [place] [employer], Sleep Medicine Board by [place] [employer] [place] [employer] [facility] [facility] [place] cc: [facility] Past Medical History Past Medical History: GERD/Reflux, Hyperlipidemia, Hypertension, Sleep Apnea/CPAP/BIPAP, Thyroid Disorder Additional Past Medical History / Comment(s): "atypical migraines", "occ skipped heart beat", "borderline high cholesterol", rt carotid artery stenosis, "possible sleep apnea-I wake up snoring", restless legs History of Any Multi-Drug Resistant Organisms: None Reported Past Surgical History: No Surgical Hx Reported Additional Past Surgical History / Comment(s): colonoscopy Past Anesthesia/Blood Transfusion Reactions: Motion Sickness Additional Past Anesthesia/Blood Transfusion Reaction / Comment(s): has never had general anesthesia Past Psychological History: No Psychological Hx Reported Additional Psychological History / Comment(s): anxious over surgery Smoking Status: Never smoker Past Alcohol Use History: Occasional Past Drug Use History: None Reported - Past Family History Mother Family Medical History: Coronary Artery Disease (CAD), CVA/TIA, Diabetes Mellitus, Hypertension, Osteoarthritis (OA), Pulmonary Embolus Additional Family Medical History / Comment(s): bleeding ulcer Sister(s) Family Medical History: Asthma, Coronary Artery Disease (CAD), Hypertension, Thyroid Disorder Father Family Medical History: Coronary Artery Disease (CAD), Hyperlipidemia, Hypertension Medications and Allergies Home Medications Medication Instructions Recorded Confirmed Type Cetirizine HCl 10 mg PO DAILY PRN 03/31/19 10/05/24 History Levothyroxine Sodium [Synthroid] 200 mcg PO DAILY 03/31/19 10/05/24 History Aspirin [Adult Low Dose Aspirin EC] 81 mg PO DAILY 11/23/19 10/05/24 History Atorvastatin [Lipitor] 40 mg PO HS 11/23/19 10/05/24 History Acetaminophen Tab [Tylenol] 650 mg PO Q4HR PRN tab 11/29/19 Rx Aspirin 162 mg PO DAILY chew 11/29/19 Rx Clopidogrel [Plavix] 75 mg PO DAILY #30 tab 11/29/19 Rx Cholecalciferol [Vitamin D3 (25 25 mcg PO DAILY 10/05/24 10/05/24 History Mcg = 1000 Iu)] Escitalopram [Lexapro] 20 mg PO DAILY 10/05/24 10/05/24 History amLODIPine [Norvasc] 5 mg PO DAILY 10/05/24 10/05/24 History Allergies Allergy/AdvReac Type Severity Reaction Status Date / Time No Known Allergies Allergy Verified 11/28/19 08:10 Physical Exam Vitals: Vital Signs Temp Pulse Resp BP Pulse Ox 10/05/24 16:20 98.2 F 70 16 142/89 98 Intake and Output 10/05/24 10/05/24 10/05/24 06:59 14:59 22:59 Other: Weight 117.48 kg Sleep Note - Sleep Data ESS Total: 11 - Sleep Note Sleep Note: Temperature: 98.2 F Pulse Rate: 70 Respiratory Rate: 16 Blood Pressure: 142/89 SpO2: 98 Height: 6 ft 2 in Weight: 117.48 kg BMI: Neck Circumference: 17
== END ==
LOC: 3 N SLEEP 15:41
PROVIDERS: ATTEND Internal Medicine
DX: G47.33 Obstructive sleep apnea (adult) (pediatric) (principal); I10 Essential (primary) hypertension; E66.01 Morbid (severe) obesity due to excess calories; E03.9 Hypothyroidism, unspecified; L98.8 Other specified disorders of the skin and subcutaneous tissue; Z68.33 Body mass index [BMI] 33.0-33.9, adult; Z98.62 Peripheral vascular angioplasty status
CPT/HCPCS: 99202

== ENCOUNTER → 2024-11-06 | Outpatient (CLI) | payer OTHER ==
--- NOTE | 2024-11-07 08:59 | MR ---
EXAMINATION TYPE: MR brain wo con DATE OF EXAM: 11/06/2024 8:24 PM COMPARISON: None. CLINICAL INDICATION: Male, 64 years old with history of G43.009 Atypical migraine; PHH, Atypical migr librado TECHNIQUE: Multi planar, multi sequence imaging was performed through the brain including: T1, T2, In version recovery, Diffusion weighted imaging, and gradient echo imaging. No gadolinium was given. FINDINGS: The maza-white junctions, ventricular system, basal cisterns appear unremarkable. Minimal scattered foci of high T2 signal intensity are seen within the periventricular white matter. Midline structure s show no abnormality. Diffusion-weighted imaging shows no evidence of restricted diffusion. The susc eptibility weighted images do not reveal any evidence for micro-hemorrhage. Pulsation artifact on FLA IR imaging courses across the frontal lobes. The bone marrow signal is within normal limits. Paranasal sinuses and mastoid air cells: No significant paranasal sinus disease. Just T2 signal right mastoid air cells. Visualized orbits: Orbital contents are intact. IMPRESSION: 1. No evidence of intracranial mass or acute/subacute infarct. 2. Few nonspecific white matter changes, possibly sequela of migraines versus small vessel ischemic d isease. [facility], , 11/07/2024 8:57 AM
--- NOTE | 2024-11-07 09:06 | MR ---
EXAMINATION TYPE: MR angio head wo con DATE OF EXAM: 11/06/2024 8:10 PM COMPARISON: MRI brain same day. CLINICAL INDICATION: Male, 64 years old with history of G43.009 Atypical migraine; PHH, Atypical migr librado TECHNIQUE: 3-D [id number] Axial with MIP reconstruction created on a separate workstation.. IV Contrast: mL (None, if empty) FINDINGS: Vertebral arteries: The vertebral arteries are patent. Vertebral arteries are: Codominant. Basilar artery: The basilar artery is intact. The basilar artery bifurcation is normal. Internal Carotid arteries: The cervical, petrous, cavernous and supraclinoid segments are normal. TRESA: Patent with no evidence of aneurysm. ACOM: Present without evidence of aneurysm. MCA: Patent with no evidence of aneurysm. FILTER SCREEN CLEANER: Patent with no evidence of aneurysm. PCOM: Hypoplastic bilaterally. Right internal auditory artery territory canal vascular loop type II. IMPRESSION: 1. No evidence of aneurysm or significant stenosis. 2. Right internal auditory artery territory canal vascular loop type II. [facility], , 11/07/2024 9:04 AM
== END | disposition home or self-care (01) ==
LOC: RADMRIMAIN 19:17
PROVIDERS: ATTEND Psychiatry & Neurology Neurology
DX: G43.009 Migraine without aura, not intractable, without status migrainosus (principal); R90.82 White matter disease, unspecified; Q14.2 Congenital malformation of optic disc
CPT/HCPCS: 70544; 70551

== ENCOUNTER 2024-12-18 19:34 | Outpatient (CLI) | payer OTHER ==
--- NOTE | 2025-01-11 13:24 | P.PCN ---
Description of Procedure: POLYSOMNOGRAPHY REPORT PROCEDURE(S)/DATE(S): Polysomnography 12/18/2024 CLINICAL: Patient has been seen in the sleep center for evaluation of obstructive sleep apnea-hypopnea syndrome. Please see my consultation. Sleep study has been done for evaluation of patient breathing during the sleep. PROCEDURE: The standard montage for clinical polysomnography included the electroencephalogram, the electrooculogram, the mentalis surface electromyography and Lead II cardiography. The respiratory battery consisted of measurements of nasal/buccal air flow, pressure transducer measurements from nose, thoracic and/or abdominal effort and intercostal surface electromyography. Video monitoring has been done to check for any parasomnia events. Nocturnal oxyhemoglobin saturations were obtained by finger oximetry. Step-mayen titration with positive airway pressure was utilized to control the respiratory events, if necessary. RESULTS: During the diagnostic sleep study sleep efficiency was extremely short 43.4%. Latency to sleep onset was prolonged to 39.5 min. Sleep architecture s howed stage NI was extremely high 67.8%, Delta sleep was absent 0%, REM sleep was short 10.3%. Total sleep time 180.0 minutes. Respiratory channel showed,0 obstructive apneas, 0 mixed apneas, 0 central apneas, 8 hypopneas with lowest oxygen level 90%. Total apnea hypopnea index was 2.7. Heart rate was in the range between 53 and 61, average 57. EMG showed 107.3 periodic limb movements per hour with 0 micro-arousals per hour. IMPRESSIONS: 1. Short sleep efficiency, totally patient slept only 3 hours. No significant respiratory abnormalities have been documented with normal oxygenation, but sleep time was short. 2. Severe periodic limb movements have been documented, but without significant microarousals. Please see other impressions from consultation PLAN: 1. I will see patient for follow-up visit to discuss results of the test and following plan. 2. Losing weight program. 3. Sleep hygiene with regular time in bed for at least 7-1/2 hours. 4. No driving if feeling sleepiness. 5. Please check iron profile including ferritin level. Low level of iron may increase the risk for periodic limb movements. Will consider to start patient on medications to prevent periodic limb movements. Thank you very much for allowing me to participate in the management of your patient. Sincerely, Rod Tomlin MD, PhD, FAASM. Diplomat of [employer], Sleep Medicine Board by [employer] Worker of [facility] [place] cc: Jorge L Tobar DO
== END 2024-12-19 05:50 | disposition home or self-care (01) ==
LOC: 3 N SLEEP 19:34
PROVIDERS: ATTEND Internal Medicine
DX: G47.33 Obstructive sleep apnea (adult) (pediatric) (principal); G47.61 Periodic limb movement disorder
CPT/HCPCS: 95810

== ENCOUNTER → 2025-01-25 | Outpatient (CLI) | payer OTHER ==
[2025-01-25 11:00] VITALS: BP 115/73; PULSE 76; RESP 16; TEMP 98.2
--- NOTE | 2025-01-25 11:43 | P.PROGSL ---
Subjective DATE: 01/25/2025 FOLLOW UP VISIT. Patient returned to sleep center for follow-up visit to discuss results of polysomnogram and following plan. I discussed results of sleep study with patient in details. Sleep slept 3 hours. Apnea hypopnea index was 2.7 with oxygen level above 90%, which is normal. EMG showed 107.3 periodic limb movements per hour. Patient has discomfort in his legs while falling asleep and sometimes during the night. . [place] sleepiness scale is increased to 12. MEDICATIONS: Please see below During physical exam: GENERAL: A pleasant patient without any distress. VITAL SIGNS: Please see below. HEENT: [place], EOMI. NECK: Supple. No JVD. LUNGS: Clear to percussion and to auscultation. Good air exchange. No wheezing or rhonchi. HEART: S1, S2 regular. ABDOMEN: Soft and nontender. EXTREMITIES: No clubbing or cyanosis. THEATRE INSTRUCTOR: Awake, alert, and oriented x3. No focal deficit. Impressions: 1. No significant respiratory abnormalities have been documented during the sleep study, normal oxygenation. 2. Severe periodic limb movements have been documented 107.3/h. 3. Hypertension. 4. Mild obesity. 5. History of anxiety. 6. Hypothyroidism. 7. History of sinus problems. 8. Status post right carotid endarterectomy. 9. Restless leg symptoms. Plan: 1. Patient will start treatment with lowest doses of Mirapex 0.125 mg 1 to 2 tablets about 45 minutes before bedtime. 2. Sleep hygiene with regular time in bed for at least 8 hours. 3. Please check iron profile including ferritin level. Low level of iron may increase risk for periodic limb movements and restless leg symptoms 4. Precautions related to driving. No driving if feel any sleepiness. Patient is aware about civil and criminal liability for unsafe driving, promised to follow recommendations. 5. Follow up visit in 4 months or earlier if patient has any problems. Thank you very much for allowing me to participate in the management of your patient. Rod Tomlin MD, PhD, FAASM. Diplomat of [employer], Sleep Medicine Board by [employer] Operations Clerk of [facility] [place] cc: [facility] Objective - Vital Signs Vital Signs: Vital Signs Temp 98.2 F 01/25/25 10:59 Pulse 76 01/25/25 10:59 Resp 16 04/24/25 10:59 BP 115/73 01/25/25 10:59 Pulse Ox 98 01/25/25 10:59 FiO2 Home Medications: Home Medications Medication Instructions Recorded Confirmed Type Cetirizine HCl 10 mg PO DAILY PRN 03/31/19 10/05/24 History Levothyroxine Sodium [Synthroid] 200 mcg PO DAILY 03/31/19 10/05/24 History Aspirin [Adult Low Dose Aspirin EC] 81 mg PO DAILY 11/23/19 10/05/24 History Atorvastatin [Lipitor] 40 mg PO HS 11/23/19 10/05/24 History Acetaminophen Tab [Tylenol] 650 mg PO Q4HR PRN tab 11/29/19 Rx Aspirin 162 mg PO DAILY chew 11/29/19 Rx Clopidogrel [Plavix] 75 mg PO DAILY #30 tab 11/29/19 Rx Cholecalciferol [Vitamin D3 (25 25 mcg PO DAILY 10/05/24 10/05/24 History Mcg = 1000 Iu)] Escitalopram [Lexapro] 20 mg PO DAILY 10/05/24 10/05/24 History amLODIPine [Norvasc] 5 mg PO DAILY 10/05/24 10/05/24 History
== END ==
LOC: 3 N SLEEP 10:53
PROVIDERS: ATTEND Internal Medicine
DX: G47.61 Periodic limb movement disorder (principal); I10 Essential (primary) hypertension; E66.9 Obesity, unspecified; F41.9 Anxiety disorder, unspecified; E03.9 Hypothyroidism, unspecified; G25.81 Restless legs syndrome; Z87.09 Personal history of other diseases of the respiratory system; Z98.890 Other specified postprocedural states
CPT/HCPCS: 99212